=== PATIENT | female | born 1980 | race Caucasian/White ===

== ENCOUNTER → 2017-10-27 | Day surgery (SDC) | payer BC ==
[~2017-10-27] VITALS: Ht 172.7 cm; Wt 64.9 kg
[~2017-10-27] MED LIST: ACET-3017 PO; AMOX-362 PO; BUTA1TAB PO; BUTA1TAB14 PO; DIA5 PO; DOCU-416 PO; FAMOTIDINE 20 MG TAB PO ONE; HYDR-4309 PO; IBU800 PO; IBUP600T22 PO; IBUP800T37 PO; LIDOCAINE/SOD BICARB 8.4% SYR ID ONE; LORA-1221 PO; LORA-1456 PO; MET2TH PO; METO-734 PO; MIDAZOLAM 2 MG/2 ML VIAL IVP ONE; MIDAZOLAM 2 MG/2 ML VIAL IVP PRN; MIGRAINE MED; MIRA50TA PO; NEOM1PAC11 TP; NORE-76 PO; NORG1TAB61 PO; NORMOSOL R SOLN(*) 1000 ML BAG 1,000 ML IV PRN; OXYB10TA21 PO; PER PO; SULF-198 PO; ZOLP-350 PO; ceFAZolin(*) 1 GM VIAL 1 GM in NS(*) 0.9% 100 ML ADDVANT BAG 100 ML IV ONE; ceFAZolin(*) 1 GM VIAL 1 GM in NS(*) 0.9% 100 ML ADDVANT BAG 100 ML IVPB ONE
[2017-10-27 18:22] LABS: PLATELET COUNT, AUTOMATED 198 K/uL (150-450)
== END ==
LOC: OR 08:00
PROVIDERS: ATTEND Urology
DX: R82.90 Unspecified abnormal findings in urine (principal)
CPT/HCPCS: 36415; 81001; 82310; 82374; 82435; 82565; 82947; 84132; 84295; 84520; 85025; 87077; 87088; 87186

== ENCOUNTER 2017-11-04 19:17 | Emergency (ER) | payer BC ==
[~2017-11-04] VITALS: Ht 172.7 cm; Wt 64.9 kg
[2017-11-04 19:22] VITALS: BP 135/86
--- NOTE | 2017-11-04 19:35 | ER Report ---
History and Physical Time Seen By MD: 19:23 Hx. of Stated Complaint: PT HEARD A "POP" WHILE IN THE SHOWER AND IS NOW HAVING BLADDER SPASMS. HPI/ROS CHIEF COMPLAINT: Genital and lower pelvic pain due to catheter HISTORY OF PRESENT ILLNESS: 37-year-old female presented with her the ER complaining of lower genital and pelvic pain. 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 Head on 09/18/17. Patient had her catheter replaced by Dr. Head today. She is scheduled to have a urethrogram tomorrow to make sure it's completely healed before they take out the catheter permanently. She notes when she was in the shower tonight just prior to coming to the ER. She felt a popping sensation. And developed fairly significant pain 6/10. She notes only mild 4/10 discomfort now. She notes pain at the site of the catheter. She's had no leakage of urine or blood. There is a leg bag attached to her left thigh containing clear yellow urine. REVIEW OF SYSTEMS: Respiratory: No cough, no dyspnea. Cardiovascular: No chest pain, no palpitations. Gastrointestinal: As above Musculoskeletal: No back pain. Allergies: Coded Allergies: adhesive tape (Verified Allergy, Intermediate, TAKES SKIN OFF/RASH , ) codeine (Verified Adverse Reaction, Intermediate, RASH, 11/04/17) Home Meds Active Scripts Hydrocodone Bit/Acetaminophen (NORCO 5-325 TABLET) 1 Each Tablet, 1 EACH PO Q4H Y for PAIN, #10 TAB Prov:BART JONAS DO 11/04/17 Reported Medications Mirabegron (MYRBETRIQ) 50 Mg Tab.er.24h, 50 MG PO QDAY 10/27/17 Zolpidem Tartrate (AMBIEN) 10 Mg Tablet, 5-10 MG PO QHS Y for INSOMNIA, TAB 09/16/17 Discontinued Reported Medications Amoxicillin (AMOXICILLIN) 500 Mg Capsule, PO BID, #15 CAPSULE 10/27/17 Hx Smoking: Yes (FOR YEAR AND A HALF ) Smoking Status: Former Smoker Exposure to Second Hand Smoke?: Yes (BOYFRIEND ) Hx Substance Use Disorder: No Hx Alcohol Use: Yes Constitutional Vital Sign - Last 24 Hours 11/04/17 19:22 Temp 98.7 Pulse 96 Resp 22 B/P (MAP) 135/86 Pulse Ox 96 O2 Delivery Room Air Physical Exam General appearance: Alert no distress. Respiratory: Chest is non tender, lungs are clear to auscultation. Cardiac: Regular rate and rhythm Abdomen bowel sounds intact, abdomen is soft, there is no tenderness suprapubically. Genital: Normal female external genitalia. Escamilla catheter appears intact without bleeding around the urethral meatus or redness. DIFFERENTIAL DIAGNOSIS: After history and physical exam differential diagnosis was considered for Escamilla catheter problems, trauma secondary to Escamilla catheter. Medical Decision Making ED Course/Re-evaluation ED Course Patient was admitted to an examination room. H&P was done. The differential diagnoses was considered. The catheter balloon was deflated. Only 3 mL of yellow urine was returned. I suspect the catheter balloon ruptured. Nursing staff was instructed replace the Escamilla catheter with the same size Escamilla catheter is currently present. Patient advised to follow-up with Dr. Head as planned tomorrow for urethrogram. Decision to Disposition Date: Nov 04, 2017 Decision to Disposition Time: 19:35 Depart Departure Latest Vital Signs Vital Signs Date Time Temp Pulse Resp B/P (MAP) Pulse Ox O2 Delivery O2 Flow Rate FiO2 11/04/17 19:22 98.7 96 22 135/86 96 Room Air Impression: Primary Impression: Escamilla catheter problem Additional Impression: History of urethral cyst Condition: Improved Disposition: HOME OR SELF-CARE Referrals: DELVIN DIGGS MD (PCP) New Scripts Hydrocodone Bit/Acetaminophen (NORCO 5-325 TABLET) 1 Each Tablet 1 EACH PO Q4H Y for PAIN, #10 TAB Prov: BART JONAS DO 11/04/17 Patient Instructions: Escamilla Catheter Placement and Care (ED) Additional Instructions: Follow-up with Dr. Head tomorrow as planned Problem Qualifiers Primary Impression: Escamilla catheter problem Encounter type: initial encounter Qualified Codes: T83.9XXA - Unspecified complication of genitourinary prosthetic device, implant and graft, initial encounter BART JONAS DO Nov 04, 2017 19:35
[2017-11-04] MEDS ORDERED: ACET/HYDROC 5/325MG TH ER ONLY 2 TAB/BOTTLE PO ONE (19:55)
[2017-11-04] MEDS ORDERED: HYDR-4309 PO (19:56)
== END 2017-11-04 20:10 | disposition home or self-care (01) ==
LOC: ER 20:10
DX: T83.9XXA Unspecified complication of genitourinary prosthetic device, implant and graft, initial encounter (principal)
CPT/HCPCS: 99282; A4338

== ENCOUNTER → 2017-11-04 | Outpatient (REF) | payer BC ==
[~2017-11-04] MED LIST changes: -FAMOTIDINE 20 MG TAB PO ONE; -LIDOCAINE/SOD BICARB 8.4% SYR ID ONE; -MIDAZOLAM 2 MG/2 ML VIAL IVP ONE; -MIDAZOLAM 2 MG/2 ML VIAL IVP PRN; -NORMOSOL R SOLN(*) 1000 ML BAG 1,000 ML IV PRN; -ceFAZolin(*) 1 GM VIAL 1 GM in NS(*) 0.9% 100 ML ADDVANT BAG 100 ML IV ONE; -ceFAZolin(*) 1 GM VIAL 1 GM in NS(*) 0.9% 100 ML ADDVANT BAG 100 ML IVPB ONE
== END ==
LOC: ZZSENDIN 17:14
PROVIDERS: ATTEND Urology
DX: N39.0 Urinary tract infection, site not specified (principal)
CPT/HCPCS: 81001; 87088